=== PATIENT | male | born 2000 | race Asian ===

== ENCOUNTER 2019-05-18 23:42 | Emergency (ER) | payer OTHER ==
[2019-05-18 23:42] VITALS: BP 131/68
[2019-05-19] MEDS ORDERED: ORPH-16 PO (00:17)
--- NOTE | 2019-05-19 00:17 | PHYS DOC ---
Past History Past Medical History: No Pertinent History Past Surgical History: No Surgical History Additional Smoking Information: No second hand exposure Alcohol Use: None Drug Use: None Adult General Chief Complaint Chief Complaint: SHOULDER INJURY HPI HPI 19-year-old male presents with report of right shoulder pain after landing on it while playing basketball. Denies deformity. Reports pain worse with flexion and abduction. Denies known numbness or tingling. Denies prior injury. Review of Systems Review of Systems Constitutional: Denies fever or chills Eyes: Denies redness or eye pain HENT: Denies nasal congestion or sore throat Respiratory: Denies cough or shortness of breath Cardiovascular: Denies chest pain or palpitations GI: Denies abdominal pain, nausea, or vomiting : Denies dysuria or hematuria Musculoskeletal: Reports right shoulder pain Integument: Denies rash or skin lesions Neurologic: Denies headache, focal weakness or sensory changes Complete systems were reviewed and found to be within normal limits, except as documented in this note. Allergies Allergies Allergies Coded Allergies Type Severity Reaction Last Updated Verified acetaminophen Allergy Unknown Anaphylaxis 05/19/19 Yes ibuprofen Allergy Unknown Anaphylaxis 05/19/19 Yes Physical Exam Physical Exam Constitutional: Well developed, well nourished, no acute distress, non-toxic appearance HENT: Normocephalic, atraumatic, oropharynx moist Eyes: Conjunctiva normal, no discharge Neck: Normal range of motion, no tenderness, supple Cardiovascular: Right radial pulses +2, cap refill less than 2 seconds Lungs & Thorax: No respiratory distress, NO clavicular pain on palpation Skin: Warm, dry, no erythema, no rash Extremities: No deformity, ROM intact, no edema, pain on range of motion with flexion and abduction Neurologic: Alert and oriented X 3, normal motor function, normal sensory function, no focal deficits noted Psychologic: Affect normal, judgement normal EKG EKG [] Radiology/Procedures Radiology/Procedures PROCEDURE: SHOULDER 2+V RIGHT Right shoulder 3 views: Reason for examination: Fell on shoulder playing basketball. No acute fracture or dislocation is evident. The bone density appears to be normal. No abnormal periosteal reaction is seen. Joint spaces are maintained. IMPRESSION: No acute bony abnormality at the right shoulder. Electronically signed by: Leah Glez MD (05/19/2019 12:18 AM) [facility] Course & Med Decision Making Course & Med Decision Making Pertinent Imaging studies reviewed. (See chart for details) Patient presents with right shoulder pain worse with flexion and abduction. No deformity noted. Neurovascularly intact. Ice applied. IM muscle relaxer offered which patient declined. X-ray obtained without fracture or dislocation. Sling applied for comfort. Patient advised on need to perform shoulder circles and educated to perform circles 10 times each direction 4 times daily. Patient stable for discharge with outpatient follow-up with PCP/orthopedics. Orthopedic referral provided. Discussed findings and plan with patient and family, who acknowledge understanding and agreement. Dragon Disclaimer Dragon Disclaimer This electronic medical record was generated, in whole or in part, using a voice recognition dictation system. Splinting Splinting : Location: Sling Pre-Made Type: shoulder sling Pre-Proc Neuro Vasc Exam: normal Post-Proc Neuro Vasc Exam: normal, unchanged from pre-exam Departure Departure: Impression: Primary Impression: Right shoulder strain Disposition: HOME, SELF-CARE Condition: STABLE Referrals: AGUS OROZCO DO (PCP) NANDO CEDEÑO MD Patient Instructions: Shoulder Sprain Additional Instructions: Please wear sling only for comfort. You must do 10 shoulder circles in each direction 4x daily to prevent "frozen shoulder Scripts Orphenadrine Citrate (ORPHENADRINE CITRATE) 100 Mg Tablet.er 1 TAB PO BID PRN for MUSCLE PAIN, #14 TAB 0 Refills Prov: SANDRO HORNE DO 05/19/19 Problem Qualifiers Primary Impression: Right shoulder strain Encounter type: initial encounter Qualified Codes: S46.911A - Strain of unspecified muscle, fascia and tendon at shoulder and upper arm level, right arm, initial encounter SANDRO HORNE DO May 19, 2019 00:17
--- NOTE | 2019-05-19 00:21 | RAD ---
Right shoulder 3 views: Reason for examination: Fell on shoulder playing basketball. No acute fracture or dislocation is evident. The bone density appears to be normal. No abnormal periosteal reaction is seen. Joint spaces are maintained. IMPRESSION: No acute bony abnormality at the right shoulder. Electronically signed by: Leah Glez MD (05/19/2019 12:18 AM) [facility]
== END 2019-05-19 00:35 | disposition home or self-care (01) ==
LOC: ER 23:42
DX: S46.911A Strain of unspecified muscle, fascia and tendon at shoulder and upper arm level, right arm, initial encounter (principal); Z88.6 Allergy status to analgesic agent; W18.39XA Other fall on same level, initial encounter; Y93.67 Activity, basketball; Y92.89 Other specified places as the place of occurrence of the external cause; Y99.8 Other external cause status
CPT/HCPCS: 73030; 99284